=== PATIENT | female | born 1955 | race Caucasian/White ===

== ENCOUNTER 2020-12-04 03:38 | Emergency (ER) | payer BC, MEDICARE ==
[~2020-12-04] VITALS: Ht 157.5 cm; Wt 78.2 kg
[2020-12-04 03:44] VITALS: BP 182/72
[2020-12-04] MEDS ORDERED: morphine 4 MG/ML inj SYRINge IV ONE (04:25)
[2020-12-04] MEDS ORDERED: metoclopramide 5 mg/ml inj IV ONE (04:25)
[2020-12-04 04:28] LABS: BASOPHILS # (AUTO) 0.1 X10'3 (0-0.2); BASOPHILS % (AUTO) 0.9 % (0-1); EOSINOPHILS % (AUTO) 0.4 % (0-6); HEMATOCRIT 41.3 % (35.0-45.0); HEMOGLOBIN 13.7 g/dl (12.0-16.0); LYMPHOCYTES # (AUTO) 1.6 X10'3 (1.1-4.8); MEAN CORPUSCULAR HEMOGLOBIN 28.7 PG (27.0-31.0); MEAN CORPUSCULAR HGB CONC 33.2 g/dL (33.0-36.5); MEAN CORPUSCULAR VOLUME 86.4 FL (78-98); MEAN PLATELET VOLUME 9.1 FL (7.4-10.4); MONOCYTES # (AUTO) 0.6 X10'3 (0-0.9); MONOCYTES % (AUTO) 6.4 % (2-12); NEUTROPHILS # (AUTO) 7.5 X10'3 (1.8-7.7); NEUTROPHILS % (AUTO) 76.3 % (42-75); PLATELET COUNT 303 X10'3 (140-440); RED BLOOD COUNT 4.77 X10'6 (4.20-5.60); RED CELL DISTRIBUTION WIDTH 14.2 % (11.5-14.5); WHITE BLOOD COUNT 9.8 X10'3 (4.5-11.0)
[2020-12-04 04:42] LABS: PARTIAL THROMBOPLASTIN TIME 28 SECONDS (22-32)
[2020-12-04 04:44] LABS: ALANINE AMINOTRANSFERASE 32 U/L (12-78); ALBUMIN 3.3 G/DL (3.4-5.0); ALBUMIN/GLOBULIN RATIO 0.8 (1.1-1.5); ALKALINE PHOSPHATASE 155 IU/L (46-116); ANION GAP 11 (8-16); ASPARTATE AMINO TRANSFERASE 21 U/L (10-37); BILIRUBIN,TOTAL 0.2 MG/DL (0.1-1.0); BLOOD UREA NITROGEN 10 MG/DL (7-18); BUN/CREATININE RATIO 10.9 (6.6-38.0); CALCIUM 8.9 MG/DL (8.5-10.1); CHLORIDE 104 MMOL/L (99-107); CREATININE 0.92 MG/DL (0.40-0.90); GLUCOSE 122 MG/DL (70-104); SODIUM 141 MMOL/L (135-145); TOTAL CARBON DIOXIDE 26.5 MMOL/L (24-32); TOTAL PROTEIN 7.7 G/DL (6.4-8.2); eGFR 62 ML/MIN
[2020-12-04] MEDS ORDERED: METR500T PO (05:55)
[2020-12-04] MEDS ORDERED: HYDR-3964 PO (05:57)
[2020-12-04] MEDS ORDERED: ONDA4TAB6 PO (05:57)
[2020-12-04 06:03] LABS: CLARITY,URINE CLEAR (Clear); COLOR,URINE YELLOW (Yellow); GLUCOSE, URINE NEGATIVE (Neg); KETONES,URINE NEGATIVE (Neg); LEUKOCYTE ESTERASE ,URINE NEGATIVE (Neg); NITRITES, URINE NEGATIVE (Neg); OCCULT BLOOD,URINE MODERATE (Neg); PROTEIN,URINE TRACE mg/dl (Neg); UROBILINOGEN,URINE 0.2 E.U/dL (0.2-1.0)
[2020-12-04 06:20] LABS: UA COLLECTION TYPE NON-SPECIFIED
[2020-12-04 06:21] LABS: BACTERIA,URINE NONE SEEN /HPF (Neg); MUCUS STRANDS NONE SEEN /LPF (Neg); SQUAMOUS EPITHELIAL CELL,UR FEW /LPF (FEW); WBC,URINE 0-4 /HPF (0-4)
== END 2020-12-04 06:11 | disposition home or self-care (01) ==
LOC: ER 03:39
DX: K52.89 Other specified noninfective gastroenteritis and colitis (principal); R10.84 Generalized abdominal pain; R11.2 Nausea with vomiting, unspecified; Z90.49 Acquired absence of other specified parts of digestive tract; Z98.890 Other specified postprocedural states; Z88.6 Allergy status to analgesic agent; Z88.1 Allergy status to other antibiotic agents; Z79.899 Other long term (current) drug therapy
CPT/HCPCS: 36415; 71045; 74176; 80053; 81001; 85025; 85610; 85730; 86885; 86900; 86901; 93005; 96374; 96375; 99285; J2270; J2765

== ENCOUNTER 2020-12-06 11:34 | Emergency (ER) | payer BC ==
[~2020-12-06] VITALS: Ht 157.5 cm; Wt 78.8 kg
[~2020-12-06 11:34] MED LIST: HYDR-3964 PO; METR500T PO; ONDA4TAB6 PO
[2020-12-06 11:49] VITALS: BP 157/78
[2020-12-06] MEDS ORDERED: ondansetron/PF 4mg/2ml inj IV ONE ×3 (14:40→18:30)
[2020-12-06] MEDS ORDERED: morphine 4 MG/ML inj SYRINge IV ONE ×2 (14:40→18:30)
[2020-12-06] MEDS ORDERED: iohexol 300mg/ml 100ml inj. ONE (14:58)
[2020-12-06 15:20] LABS: BASOPHILS # (AUTO) 0.1 X10'3 (0-0.2); BASOPHILS % (AUTO) 0.6 % (0-1); EOSINOPHILS # (AUTO) 0.3 X10'3 (0-0.9); EOSINOPHILS % (AUTO) 3.2 % (0-6); HEMATOCRIT 35.7 % (35.0-45.0); HEMOGLOBIN 11.7 g/dl (12.0-16.0); LYMPHOCYTES # (AUTO) 3.2 X10'3 (1.1-4.8); LYMPHOCYTES % (AUTO) 39.3 % (21-51); MEAN CORPUSCULAR HEMOGLOBIN 28.8 PG (27.0-31.0); MEAN CORPUSCULAR HGB CONC 32.8 g/dL (33.0-36.5); MEAN CORPUSCULAR VOLUME 87.7 FL (78-98); MEAN PLATELET VOLUME 8.9 FL (7.4-10.4); MONOCYTES # (AUTO) 0.5 X10'3 (0-0.9); MONOCYTES % (AUTO) 6.7 % (2-12); NEUTROPHILS % (AUTO) 50.2 % (42-75); PLATELET COUNT 232 X10'3 (140-440); RED BLOOD COUNT 4.06 X10'6 (4.20-5.60); WHITE BLOOD COUNT 8.1 X10'3 (4.5-11.0)
[2020-12-06 15:32] LABS: PARTIAL THROMBOPLASTIN TIME 28 SECONDS (22-32)
[2020-12-06 15:35] LABS: ALANINE AMINOTRANSFERASE 30 U/L (12-78); ALBUMIN 3.1 G/DL (3.4-5.0); ALBUMIN/GLOBULIN RATIO 0.8 (1.1-1.5); ALKALINE PHOSPHATASE 114 IU/L (46-116); ANION GAP 10 (8-16); ASPARTATE AMINO TRANSFERASE 19 U/L (10-37); BILIRUBIN,TOTAL 0.2 MG/DL (0.1-1.0); BLOOD UREA NITROGEN 11 MG/DL (7-18); CALCIUM 8.9 MG/DL (8.5-10.1); CHLORIDE 104 MMOL/L (99-107); GLUCOSE 97 MG/DL (70-104); POTASSIUM 3.5 MMOL/L (3.5-5.1); SODIUM 141 MMOL/L (135-145); TOTAL CARBON DIOXIDE 27.4 MMOL/L (24-32); TOTAL PROTEIN 7.1 G/DL (6.4-8.2); eGFR 56 ML/MIN
[2020-12-06 16:12] LABS: CLARITY,URINE CLEAR (Clear); COLOR,URINE YELLOW (Yellow); GLUCOSE, URINE NEGATIVE (Neg); KETONES,URINE NEGATIVE (Neg); LEUKOCYTE ESTERASE ,URINE NEGATIVE (Neg); NITRITES, URINE NEGATIVE (Neg); OCCULT BLOOD,URINE TRACE-INTACT (Neg); PH,URINE 5.5 (4.8-8.0); PROTEIN,URINE NEGATIVE (Neg); UROBILINOGEN,URINE 0.2 E.U/dL (0.2-1.0)
[2020-12-06 16:19] LABS: UA COLLECTION TYPE NON-SPECIFIED
[2020-12-06 16:20] LABS: BACTERIA,URINE NONE SEEN /HPF (Neg); MUCUS STRANDS NONE SEEN /LPF (Neg); RBC,URINE 0-2 /HPF (0-2); SQUAMOUS EPITHELIAL CELL,UR FEW /LPF (FEW); WBC,URINE NONE SEEN /HPF (0-4)
[2020-12-06] MEDS ORDERED: ONDA4TAB6 PO (18:26)
--- NOTE | 2020-12-07 14:54 | NUR ---
PT CALLED FOR COVID RESULTS. PER LAB, NO ORDER WAS RECEIVED. PROVIDER NOTIFIED AND COVID ORDER WAS OBTAINED, [facility] WAS LOCATED IN THE LAB AND THE [facility] WILL GO OUT TUESDAY MORNING, 12/08/20. PT WAS INFORMED OF THE SITUATION AND THAT THE [facility] WILL BE SENT OUT TOMORROW MORNING, AND THAT RESULTS SHOULD BE BACK BY 12/08 OR 12/09 AT THE LATEST.
== END 2020-12-06 18:51 | disposition home or self-care (01) ==
LOC: ER 11:35
DX: K52.9 Noninfective gastroenteritis and colitis, unspecified (principal); Z20.822 Contact with and (suspected) exposure to COVID-19; K92.1 Melena; Q27.30 Arteriovenous malformation, site unspecified; Z90.49 Acquired absence of other specified parts of digestive tract; Z88.8 Allergy status to other drugs, medicaments and biological substances; Z88.2 Allergy status to sulfonamides; Z79.899 Other long term (current) drug therapy
CPT/HCPCS: 36415; 74177; 80053; 81001; 85025; 85610; 85730; 96374; 96375; 96376; 99285; J2270; J2405; Q9967; U0003; U0005

== ENCOUNTER 2022-10-04 14:15 | Emergency (ER) | payer BC, MEDICARE ==
[~2022-10-04] VITALS: Ht 160 cm; Wt 82.7 kg
[~2022-10-04 14:15] MED LIST changes: -HYDR-3964 PO; -METR500T PO
[2022-10-04] MEDS ORDERED: normal saline 1000ml 1,000 ML IV ONE (16:00)
[2022-10-04] MEDS ORDERED: morphine 4 MG/ML inj SYRINge IV ONE (16:00)
[2022-10-04] MEDS ORDERED: diazepam inj 5 MG/ML inj. IV ONE (16:00)
[2022-10-04] MEDS ORDERED: ondansetron/PF 4mg/2ml inj IV ONE (16:00)
[2022-10-04] MEDS ORDERED: pantoprazole 40MG/NS 100ML BAG 100 ML IV ONE (16:10)
[2022-10-04 16:15] LABS: BASOPHILS % (AUTO) 0.3 % (0-1); EOSINOPHILS # (AUTO) 0.1 X10'3 (0-0.9); HEMATOCRIT 40.6 % (35.0-45.0); HEMOGLOBIN 13.3 g/dl (12.0-16.0); LYMPHOCYTES # (AUTO) 0.4 X10'3 (1.1-4.8); LYMPHOCYTES % (AUTO) 8.2 % (21-51); MEAN CORPUSCULAR HEMOGLOBIN 28.5 PG (27.0-31.0); MEAN CORPUSCULAR HGB CONC 32.8 g/dL (33.0-36.5); MEAN CORPUSCULAR VOLUME 86.9 FL (78-98); MEAN PLATELET VOLUME 9.1 FL (7.4-10.4); MONOCYTES # (AUTO) 0.3 X10'3 (0-0.9); MONOCYTES % (AUTO) 5.7 % (2-12); NEUTROPHILS # (AUTO) 4.4 X10'3 (1.8-7.7); NEUTROPHILS % (AUTO) 84.8 % (42-75); PLATELET COUNT 203 X10'3 (140-440); RED BLOOD COUNT 4.67 X10'6 (4.20-5.60); RED CELL DISTRIBUTION WIDTH 14.7 % (11.5-14.5); WHITE BLOOD COUNT 5.2 X10'3 (4.5-11.0)
[2022-10-04 16:24] LABS: ALANINE AMINOTRANSFERASE 39 U/L (12-78); ALBUMIN 3.5 G/DL (3.4-5.0); ALBUMIN/GLOBULIN RATIO 0.9 (1.1-1.5); ALKALINE PHOSPHATASE 151 IU/L (46-116); ANION GAP 13 (8-16); ASPARTATE AMINO TRANSFERASE 43 U/L (10-37); BILIRUBIN,TOTAL 0.2 MG/DL (0.1-1.0); BLOOD UREA NITROGEN 14 MG/DL (7-18); BUN/CREATININE RATIO 15.1 (10.0-20.0); CHLORIDE 102 MMOL/L (99-107); CREATININE 0.93 MG/DL (0.40-0.90); GLUCOSE 123 MG/DL (70-104); LIPASE 91 U/L (73-393); POTASSIUM 4.5 MMOL/L (3.5-5.1); SODIUM 140 MMOL/L (135-145); TOTAL CARBON DIOXIDE 25.3 MMOL/L (24-32); TOTAL PROTEIN 7.6 G/DL (6.4-8.2); eGFR 61 ML/MIN
[2022-10-04 17:38] LABS: APTT 27 SECONDS (22-32)
[2022-10-04] MEDS ORDERED: ONDA4TAB12 PO (19:02)
[2022-10-04] MEDS ORDERED: METO-292 PO (19:02)
[2022-10-04] MEDS ORDERED: HYDR-3965 PO (19:02)
[2022-10-04] MEDS ORDERED: DIAZ5TAB22 PO (19:02)
[2022-10-04] MEDS ORDERED: ondansetron 4mg rapidly disintigrating tab PO ONE (19:25)
[2022-10-04] MEDS ORDERED: HYDROcodone/acetaminophen 10/325mg tab PO ONE (19:25)
[2022-10-04 20:15] VITALS: BP 160/74
== END 2022-10-04 20:56 | disposition home or self-care (01) ==
LOC: ER 14:16
DX: G43.119 Migraine with aura, intractable, without status migrainosus (principal); K52.89 Other specified noninfective gastroenteritis and colitis; Q27.30 Arteriovenous malformation, site unspecified; Z88.6 Allergy status to analgesic agent; Z88.1 Allergy status to other antibiotic agents
CPT/HCPCS: 36415; 80053; 83690; 85025; 85610; 85730; 96374; 96375; 99284; C9113; J2270; J2405; J3360; J7030

== ENCOUNTER 2024-12-14 08:32 | Outpatient (CLI) | payer MEDICARE, BC ==
[~2024-12-14 08:32] MED LIST changes: +METO-292 PO; +ONDA-243 PO
[2024-12-14] MEDS ORDERED: iohexol 300mg/ml 100ml inj. ONE (08:50)
--- NOTE | 2024-12-14 10:17 | RADIOLOGY REPORT ---
Exam: CT CT ABDOMEN PELVIS W/ IV CONTRAST History: DIARRHEA, UNSPECIFIED TECHNIQUE: Multiple contiguous axial CT images of the abdomen and pelvis were obtained with intraveno us contrast. The images were reformatted to generate coronal and sagittal reconstructions. 100 cc of Omnipaque 350 contrast was injected intravenously. All CT scans at this medical facility are performed using dose modulation techniques as appropriate t o a performed exam including the following:Automated exposure control was utilized; adjustment of the MA and/or KV according to patient size; and use of iterative reconstruction technique. Radiation Dose Information: CT Dose: CTDI volume is 31 mGy. Dose-length product is 1503 mGy*cm Comparison: CT ABDOMEN PELVIS on DOS: 12/06/20, CT ABDOMEN PELVIS on DOS: 12/04/20 FINDINGS: The gallbladder is surgically absent. There is stable moderate fatty replacement of the pancreas. The liver, kidneys, adrenal glands, and spleen appear within normal limits. There is no evidence of abdominal lymphadenopathy. There is no free fluid or free air. There is a sta ble small periumbilical fat containing hernia. The stomach grossly appears unremarkable. The small and large bowel loops demonstrate normal caliber and distribution. The appendix is not seen in the right lower quadrant abdomen. There are no seconda ry signs of acute appendicitis. The abdominal aorta and IVC appear within normal limits. The bladder appears within normal limits the degree of distention. There is a stable small calcified uterine leiomyoma. There is no evidence of a pelvic mass or lymphadenopathy. There is no free fluid c ollection. Lung bases are clear. There is no acute osseous abnormality. IMPRESSION: 1. There is no acute process in the abdomen and pelvis. HS:Y
== END 2024-12-14 23:59 | disposition home or self-care (01) ==
LOC: RAD 08:32
PROVIDERS: ATTEND Internal Medicine Gastroenterology
DX: R19.7 Diarrhea, unspecified (principal); Z90.49 Acquired absence of other specified parts of digestive tract
CPT/HCPCS: 74177; Q9967